=== PATIENT | female | born 1980 ===

== ENCOUNTER 2017-05-19 12:40 | Outpatient (CLI) | payer OTHER ==
--- NOTE | 2017-05-19 13:59 | Mammography Report ---
BILATERAL DIGITAL DIAGNOSTIC MAMMOGRAM with CAD and LEFT BREAST ULTRASOUND: 05/19/17 CLINICAL: 37-year-old with a palpable left breast lump. COMPARISON:10/24/13 baseline mammogram. FINDINGS: The breasts are heterogeneously dense, which may obscure small masses.No mass, suspicious architectural distortion or suspicious calcifications . No suspicious mammographic finding at a left upper outer periareolar palpable marker. Ultrasound of the left breast in the area of the palpable marker demonstrated normal fibroglandular structures and no mass, cyst or shadowing. I examined the breast myself and felt nothing suspicious. My scan also demonstrated normal fibroglandular structures with prominent but normal TDLUs. IMPRESSION: Negative mammogram and negative left breast ultrasound. BI-RADS CATEGORY: 1 - - Negative RECOMMENDATION: Clinical follow-up of the palpable area and routine mammographic screening based on ACS guidelines. ACR BI-RADS MAMMOGRAPHIC CODES: 0 = Needs additional imaging evaluation; 1 = Negative; 2 = Benign; 3 = Probably benign; 4 = Suspicious; 5 = Malignant; 6 = Known biopsy-proven malignancy COMMENT: 1. Dense breast tissue, i.e., adenosis, fibrocystic changes, etc., may obscure an underlying neoplasm. 2. Approximately 10% of cancers are not detected with mammography. 3. A negative mammography report should not delay biopsy if a clinically suspicious mass is present. COMMENT: Patient follow-up letters are generated by our [employer] application.
== END 2017-05-19 12:41 | disposition home or self-care (01) ==
LOC: SPVWC 12:40
PROVIDERS: ATTEND Obstetrics & Gynecology
DX: N63.20 Unspecified lump in the left breast, unspecified quadrant (principal); R92.8 Other abnormal and inconclusive findings on diagnostic imaging of breast
CPT/HCPCS: 76642; G0204; 77066